=== PATIENT | female | born 1945 | race Caucasian/White ===

== ENCOUNTER → 2016-06-01 | Outpatient (REF) | payer MEDICARE ==
[~2016-06-01] MED LIST: VICO5TAB16 PO
== END ==
LOC: M LAB REF 07:47
PROVIDERS: ATTEND Internal Medicine
DX: E83.52 Hypercalcemia (principal)

== ENCOUNTER → 2016-06-17 | Outpatient (CLI) | payer MEDICARE ==
[~2016-06-17] VITALS: Ht 160 cm; Wt 102.1 kg
[~2016-06-17] MED LIST changes: +ALLE180T33 PO; +ASPI81TA85 PO; +ATOR1TAB19 PO; +CALC600T10 PO; +CARV12.5 PO; +CENTTAB47 PO; +ENAL20TA PO; +GLIP5TAB15 PO; +INVO100T PO; +LASI80TA PO; +LIDOCAINE 2% INJ 100 MG/5 ML SDV (FOR ANES.) As Ordered ONE; +MAGN500C PO; +METF500T PO; +NS 1,000 ML IV SCH; +POTA10CA PO; +PROPOFOL 200 MG/20 ML VIAL As Ordered ONE; +VICT18IN SC; +VITA-112 PO
--- NOTE | 2016-06-17 08:58 | ROOR ---
Patient Name: Paul De La Paz Procedure Date: 06/17/2016 8:16 AM Date of : 1945 Age: 71 Room: [facility] Gender: Female Note Status: Finalized Procedure: Upper GI endoscopy + Biopsies Indications: Heartburn, Exclusion of Fierro's esophagus Providers: Travis Ann MD Referring MD: Nolvia HAYDEN MD Requesting Provider: Medicines: Monitored Anesthesia Care Complications: No immediate complications. Procedure: Pre-Anesthesia Assessment: - The heart rate, respiratory rate, oxygen saturations, blood pressure, adequacy of pulmonary ventilation, and response to care were monitored throughout the procedure. The Endoscope was introduced through the mouth, and advanced to the second part of duodenum. The upper GI endoscopy was accomplished without difficulty. The patient tolerated the procedure well. Findings: The Z-line was irregular and was found 40 cm from the incisors. Non-severe esophagitis with no bleeding was found 40 cm from the incisors. Biopsies were taken with a cold forceps for histology. Localized mild inflammation characterized by congestion (edema) and erythema was found in the gastric antrum. Biopsies were taken with a cold forceps for Helicobacter pylori testing. The exam was otherwise without abnormality. Impression: - Z-line irregular, 40 cm from the incisors. - Non-severe reflux esophagitis. Rule out Fierro's esophagus. Biopsied. - Chronic gastritis. Biopsied. - The examination was otherwise normal. Recommendation: - Patient has a contact number available for emergencies. The signs and symptoms of potential delayed complications were discussed with the patient. Return to normal activities tomorrow. Written discharge instructions were provided to the patient. - High fiber diet. - Discharge patient to home. - Continue present medications. - Await pathology results. - Telephone GI clinic for pathology results in 1 week. - Check Portal Online for Path Results.([email or web address]) - Return to referring physician. - The findings and recommendations were discussed with the patient's family. Travis Ann MD Travis Ann MD 06/17/2016 8:58:27 AM This report has been signed electronically. Number of Addenda: 0 Note Initiated On: 06/17/2016 8:16 AM Estimated Blood Loss: Estimated blood loss: none.
--- NOTE | 2016-06-17 09:13 | ROOR ---
Patient Name: Paul De La Paz Procedure Date: 06/17/2016 8:18 AM Date of : 1945 Age: 71 Room: [facility] Gender: Female Note Status: Finalized Procedure: Colonoscopy to Cecum + Biopsy Polypectomy Indications: Screening for colorectal malignant neoplasm, Last colonoscopy 10 years ago Providers: Travis Ann MD Referring MD: Nolvia HAYDEN MD Requesting Provider: Medicines: Monitored Anesthesia Care Complications: No immediate complications. Procedure: Pre-Anesthesia Assessment: - The heart rate, respiratory rate, oxygen saturations, blood pressure, adequacy of pulmonary ventilation, and response to care were monitored throughout the procedure. The Colonoscope was introduced through the anus and advanced to the cecum, identified by appendiceal orifice and ileocecal valve. The colonoscopy was performed without difficulty. The patient tolerated the procedure well. The quality of the bowel preparation was good. Findings: The perianal and digital rectal examinations were normal. Multiple small and large-mouthed diverticula were found in the recto-sigmoid colon, sigmoid colon and descending colon. A diminutive polyp was found at 30 cm proximal to the anus. The polyp was sessile. The polyp was removed with a cold biopsy forceps. Resection and retrieval were complete. The exam was otherwise without abnormality on direct and retroflexion views. Impression: - Diverticulosis in the recto-sigmoid colon, in the sigmoid colon and in the descending colon. - One diminutive polyp at 30 cm proximal to the anus, removed with a cold biopsy forceps. Resected and retrieved. - The examination was otherwise normal on direct and retroflexion views. - The exam was otherwise normal to the cecum. Recommendation: - Patient has a contact number available for emergencies. The signs and symptoms of potential delayed complications were discussed with the patient. Return to normal activities tomorrow. Written discharge instructions were provided to the patient. - High fiber diet. - Discharge patient to home. - Continue present medications. - Await pathology results. - Telephone GI clinic for pathology results in 1 week. - Check Portal Online for Path Results.([email or web address]) - Repeat colonoscopy in 10 years for surveillance based on pathology results. - The findings and recommendations were discussed with the patient's family. Travis Ann MD Travis Ann MD 06/17/2016 9:13:27 AM This report has been signed electronically. Number of Addenda: 0 Note Initiated On: 06/17/2016 8:18 AM Estimated Blood Loss: Estimated blood loss: none.
[2016-06-17 09:45] VITALS: BP 162/83
== END | disposition home or self-care (01) ==
LOC: M OPP 07:34
PROVIDERS: ATTEND Internal Medicine Gastroenterology
DX: Z12.11 Encounter for screening for malignant neoplasm of colon (principal); D12.5 Benign neoplasm of sigmoid colon; K57.30 Diverticulosis of large intestine without perforation or abscess without bleeding; R12 Heartburn; K22.8 Other specified diseases of esophagus; K29.50 Unspecified chronic gastritis without bleeding; K21.0 Gastro-esophageal reflux disease with esophagitis; I10 Essential (primary) hypertension; E78.5 Hyperlipidemia, unspecified; R60.0 Localized edema; E11.9 Type 2 diabetes mellitus without complications; M19.90 Unspecified osteoarthritis, unspecified site; Z78.0 Asymptomatic menopausal state; Z85.528 Personal history of other malignant neoplasm of kidney; Z80.3 Family history of malignant neoplasm of breast; Z87.891 Personal history of nicotine dependence; Z88.2 Allergy status to sulfonamides; Z88.8 Allergy status to other drugs, medicaments and biological substances; Z79.82 Long term (current) use of aspirin; Z79.84 Long term (current) use of oral hypoglycemic drugs; Z79.899 Other long term (current) drug therapy

== ENCOUNTER 2017-07-23 19:21 | Emergency (ER) | payer MEDICARE ==
[2017-07-23] MEDS ORDERED: IBUPROFEN 600 MG TAB PO (20:00)
[2017-07-23 20:10] LABS: BASO % 0.3 % (0.0-1.0); EOS # 0.2 10^3/uL (0.0-0.50); EOS % 1.8 % (0.0-3.0); HEMATOCRIT 42.3 % (36.0-47.0); HEMOGLOBIN 13.5 g/dl (12.0-15.5); IMMATURE GRANULOCYTE % 0.3 % (0-3.0); LYMPH # 2.2 10^3/uL (1.5-4.5); LYMPH % 18.6 % (24.0-44.0); MEAN CORPUSCULAR HGB CONC 31.9 g/dl (32.0-36.5); MEAN CORPUSCULAR VOLUME 90.8 fl (80.0-96.0); MONO # 1.5 10^3/uL (0.0-0.8); MONO % 12.9 % (0.0-5.0); NEUTROPHILS # 7.8 10^3/uL (1.8-7.7); NEUTROPHILS % 66.1 % (36.0-66.0); PLATELET COUNT, AUTOMATED 247 10^3/uL (150-450); RED BLOOD COUNT 4.66 10^6/uL (4.00-5.40); RED CELL DISTRIBUTION WIDTH 12.9 % (11.5-14.5); WHITE BLOOD COUNT 11.7 10^3/uL (4.0-10.0)
[2017-07-23] MEDS ORDERED: IBUPROFEN 400 MG TAB As Ordered (20:19)
[2017-07-23] MEDS: IBUPROFEN 400 MG TAB PO (20:21)
[2017-07-23 20:23] LABS: PROTHROMBIN TIME 12.2 SECONDS (12.4-14.5)
[2017-07-23 20:24] LABS: PARTIAL THROMBOPLASTIN TIME 33.7 SECONDS (26.8-37.9)
[2017-07-23 20:26] LABS: D-DIMER QUANT 843.5 ng/ml (<500)
[2017-07-23 20:33] LABS: ALBUMIN 3.3 GM/DL (3.2-5.2); ALBUMIN/GLOBULIN RATIO 0.73 (1.00-1.93); ALKALINE PHOSPHATASE 47 U/L (45-117); ALT/SGPT 49 U/L (12-78); ANION GAP 6 MEQ/L (8-16); AST/SGOT 14 U/L (7-37); BILIRUBIN,DIRECT 0.2 MG/DL (0.0-0.2); BILIRUBIN,TOTAL 0.5 MG/DL (0.2-1.0); BLOOD UREA NITROGEN 13 MG/DL (7-18); CARBON DIOXIDE LEVEL 32 MEQ/L (21-32); CHLORIDE LEVEL 98 MEQ/L (98-107); CK-MB VALUE MASS < 1.0 NG/ML (<3.6); CPK CREATINE PHOSPHOKINASE 104 U/L (26-192); CREATININE FOR GFR 0.86 MG/DL (0.55-1.30); GLOMERULAR FILTRATION RATE > 60.0 (>39); GLUCOSE, FASTING 193 MG/DL (70-100); MB/CK RELATIVE INDEX 0.96 (< OR =4); POTASSIUM SERUM 3.5 MEQ/L (3.5-5.1); SODIUM LEVEL 136 MEQ/L (136-145); TOTAL PROTEIN 7.8 GM/DL (6.4-8.2); TROPONIN I < 0.02 NG/ML (< 0.10)
[2017-07-23] MEDS ORDERED: ISOVUE-370 76% 100ML VIAL (Q9967) As Ordered (20:57)
[2017-07-23] MEDS: MOXIFLOXACIN 400 MG TAB PO (22:38)
[2017-07-23] MEDS: OXYCODONE/APAP 5MG/325MG(BULK FOR ED) 1 TABLET PO (22:38)
== END 2017-07-23 22:45 | disposition home or self-care (01) ==
LOC: M ED 19:21
DX: H66.92 Otitis media, unspecified, left ear (principal); J20.9 Acute bronchitis, unspecified; M54.9 Dorsalgia, unspecified; E27.9 Disorder of adrenal gland, unspecified; E11.9 Type 2 diabetes mellitus without complications; I10 Essential (primary) hypertension; Z87.891 Personal history of nicotine dependence; Z88.2 Allergy status to sulfonamides; Z88.8 Allergy status to other drugs, medicaments and biological substances; Z79.899 Other long term (current) drug therapy; Z79.84 Long term (current) use of oral hypoglycemic drugs; Z79.82 Long term (current) use of aspirin
CPT/HCPCS: Q9967

== ENCOUNTER → 2017-09-27 | Outpatient (REF) | payer MEDICARE ==
[2017-09-27 13:47] LABS: CORTISOL AM 26.1 UG/DL (4.3-22.4)
[2017-09-30 08:06] LABS: DEHYDROEPIANDROSTERONE SULFATE 27.5 ug/dL (20.4-186.6)
[2017-10-01 10:14] LABS: ALDOSTERONE 11.3 ng/dL (0.0-30.0)
[2017-10-01 10:14] LABS: DEHYDROEPIANDROSTERONE UNCONJ 26 ng/dL (31-701); METANEPHRINE PLASMA 42 pg/mL (0-62); NORMETANEPHRINE PLASMA 90 pg/mL (0-145); RENIN LEVEL 33.917 ng/mL/hr (0.167-5.380)
== END ==
LOC: M LAB REF 13:10
DX: I10 Essential (primary) hypertension (principal); D44.12 Neoplasm of uncertain behavior of left adrenal gland; D35.00 Benign neoplasm of unspecified adrenal gland
CPT/HCPCS: 84244

== ENCOUNTER → 2017-10-18 | Outpatient (REF) | payer MEDICARE ==
[2017-10-18 14:37] LABS: CORTISOL AM 2.3 UG/DL (4.3-22.4)
== END ==
LOC: M LAB REF 13:46
DX: D44.2 Neoplasm of uncertain behavior of parathyroid gland (principal); D35.00 Benign neoplasm of unspecified adrenal gland
CPT/HCPCS: 82533

== ENCOUNTER → 2018-01-04 | Outpatient (REF) | payer MEDICARE ==
[2018-01-05 12:56] LABS: CORTISOL AM 17.5 UG/DL (4.3-22.4)
== END ==
LOC: M LAB REF 13:00
DX: D44.12 Neoplasm of uncertain behavior of left adrenal gland (principal)
CPT/HCPCS: 82533

== ENCOUNTER → 2018-01-18 | Outpatient (CLI) | payer MEDICARE ==
[~2018-01-18] MED LIST changes: -ALLE180T33 PO; -ASPI81TA85 PO; -ATOR1TAB19 PO; -CALC600T10 PO; -CARV12.5 PO; -CENTTAB47 PO; -ENAL20TA PO; -GLIP5TAB15 PO; -INVO100T PO; +ISOVUE-370 76% 100ML VIAL (Q9967) As Ordered; -LASI80TA PO; -LIDOCAINE 2% INJ 100 MG/5 ML SDV (FOR ANES.) As Ordered ONE; -MAGN500C PO; -METF500T PO; -NS 1,000 ML IV SCH; -POTA10CA PO; -PROPOFOL 200 MG/20 ML VIAL As Ordered ONE; -VICO5TAB16 PO; -VICT18IN SC; -VITA-112 PO
== END ==
LOC: M RAD 15:05
DX: D35.02 Benign neoplasm of left adrenal gland (principal); K44.9 Diaphragmatic hernia without obstruction or gangrene
CPT/HCPCS: Q9967

== ENCOUNTER 2018-03-01 14:21 | Outpatient (CLI) | payer MEDICARE ==
[~2018-03-01] VITALS: Ht 160 cm; Wt 99.8 kg
[~2018-03-01 14:21] MED LIST changes: +ALLE180T33 PO; +ASPI81TA85 PO; +ATOR1TAB19 PO; +AVEL1TAB3 PO; +CALC600T31 PO; +CARV12.5 PO; +CENTTAB47 PO; +ENAL20TA PO; +GLIP5TAB20 PO; +INVO100T PO; -ISOVUE-370 76% 100ML VIAL (Q9967) As Ordered; +KLOR10TA76 PO; +LASI80TA3 PO; +MAGN500C PO; +METF500T13 PO; +VICO5TAB16 PO; +VICT18IN SC; +VITA-112 PO
[2018-03-01 14:25] VITALS: BP 139/65
[2018-03-01] MEDS ORDERED: ZOLEDRONIC ACID 5 MG in APPROPRIATE DILUENT 1 EA IV ONE (14:45)
[2018-03-01] MEDS ORDERED: [UNRECOGNIZED DRUG - CODE] PO (15:30)
[2018-03-01] MEDS ORDERED: GABA-1171 PO (15:30)
[2018-03-01 15:45] VITALS: BP 126/60
== END 2018-03-01 15:50 | disposition home or self-care (01) ==
LOC: M INFU 14:21
PROVIDERS: ATTEND Internal Medicine
DX: M81.0 Age-related osteoporosis without current pathological fracture (principal)
CPT/HCPCS: 96365; J3489

== ENCOUNTER → 2018-07-06 | Outpatient (REF) | payer MEDICARE ==
[~2018-07-06] MED LIST changes: +GABA-1171 PO; -VICO5TAB16 PO; +VICO5TAB17 PO; +VITA500075 PO
== END ==
LOC: M LAB REF 12:53
PROVIDERS: ATTEND Internal Medicine
DX: E83.52 Hypercalcemia (principal)

== ENCOUNTER → 2018-10-26 | Outpatient (CLI) | payer MEDICARE ==
--- NOTE | 2018-10-26 09:41 | REP ---
Clinical: Malignant renal neoplasm. Comparison: 07/23/2017 . Technique: PA and lateral. Findings: The mediastinum and cardiac silhouette are normal. The lung granados are clear and without acute consolidation, effusion, or pneumothorax. The skeletal structures are intact and normal. Prior right shoulder repair. Impression: 1. No acute cardiopulmonary process. Electronically Signed by Osorio Joe MD 10/26/2018 09:32 A
== END ==
LOC: M RAD 09:08
PROVIDERS: ATTEND Urology
DX: C64.2 Malignant neoplasm of left kidney, except renal pelvis (principal)

== ENCOUNTER 2019-03-02 07:58 | Outpatient (CLI) | payer MEDICARE ==
[~2019-03-02] VITALS: Ht 160 cm; Wt 99.0 kg
[2019-03-02 08:00] VITALS: BP 151/75
[2019-03-02] MEDS ORDERED: ZOLEDRONIC ACID 5 MG OVER 15 MINUTES IV ONE ×2 (09:00)
[2019-03-02 09:20] VITALS: BP 120/88
== END 2019-03-02 09:20 | disposition home or self-care (01) ==
LOC: M INFU 07:58
PROVIDERS: ATTEND Internal Medicine
DX: M81.8 Other osteoporosis without current pathological fracture (principal); Z88.2 Allergy status to sulfonamides
CPT/HCPCS: 96365; J3489

== ENCOUNTER → 2019-05-23 | Outpatient (REF) | payer MEDICARE | LOC: M LAB REF 12:20 | PROVIDERS: ATTEND Internal Medicine | DX: Z85.528 Personal history of other malignant neoplasm of kidney (principal) ==

== ENCOUNTER → 2019-10-18 | Outpatient (CLI) | payer MEDICARE ==
[~2019-10-18] MED LIST changes: -ASPI81TA85 PO; +ASPI81TA86 PO; -ENAL20TA PO; +ENAL20TA11 PO
--- NOTE | 2019-10-26 11:17 | REP ---
CHEST X-RAY: 2-VIEWS HISTORY: C64.2. History of hypertension. Malignant neoplasm of the left kidney. COMPARISON: 10/26/2018. FINDINGS: Screw plate fixation device persists along the lateral cortex of the proximal humerus on the right. 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 There are degenerative changes in the thoracic spine. No acute bony abnormality is seen. The lungs are well-inflated and clear. The pleural angles are sharp. Heart size is normal. Pulmonary vasculature is not increased. IMPRESSION: No active cardiopulmonary disease. MTDD
== END ==
LOC: M RAD 14:54
PROVIDERS: ATTEND Urology
DX: C64.2 Malignant neoplasm of left kidney, except renal pelvis (principal); M19.012 Primary osteoarthritis, left shoulder; M51.34 Other intervertebral disc degeneration, thoracic region

== ENCOUNTER 2020-03-04 09:54 | Outpatient (CLI) | payer MEDICARE ==
[~2020-03-04] VITALS: Ht 160 cm; Wt 95.0 kg
[2020-03-04] MEDS ORDERED: ZOLEDRONIC ACID 5 MG in IV 1 EA IV ONE (10:00)
[2020-03-04 10:33] VITALS: BP 127/67
[2020-03-04] MEDS ORDERED: JARD1TAB3 PO (10:45)
[2020-03-04 10:52] VITALS: BP 127/59
== END 2020-03-04 11:00 | disposition home or self-care (01) ==
LOC: M INFU 09:54
PROVIDERS: ATTEND Internal Medicine
DX: M81.0 Age-related osteoporosis without current pathological fracture (principal); Z88.2 Allergy status to sulfonamides
CPT/HCPCS: 96365; J3489

== ENCOUNTER → 2020-10-15 | Outpatient (CLI) | payer MEDICARE ==
[~2020-10-15] MED LIST changes: +JARD1TAB3 PO
--- NOTE | 2020-10-15 08:26 | REP ---
INDICATION: F/U RENAL CELL CA- US FIRST COMPARISON: 10/18/2019 TECHNIQUE: PA and lateral. FINDINGS: The mediastinum and cardiac silhouette are normal. The lung granados are clear and without acute consolidation, effusion, or pneumothorax. The skeletal structures are intact and normal. IMPRESSION: No acute cardiopulmonary process. <Electronically signed by Osorio Joe > 10/15/20 [id number]
--- NOTE | 2020-10-15 08:38 | REP ---
INDICATION: F/U RENAL CELL CA COMPARISON: 02/13/2019 TECHNIQUE: Real time case scale ultrasound examination using curved array transducer. FINDINGS: Bilateral kidneys are normal in contour, size, echogenicity, and reniform shape. No hydronephrosis, nephrolithiasis, cystic or renal mass lesion identified. Right kidney measures 11.3 x 4.9 x 6.2 cm. Left kidney measures 10.4 x 4.3 x 5.1 cm. Bladder is under distended and grossly unremarkable. IMPRESSION: 1. Essentially normal renal ultrasound. <Electronically signed by Osorio Joe > 10/15/20 [id number]
== END ==
LOC: M RAD 07:30
PROVIDERS: ATTEND Internal Medicine
DX: C64.9 Malignant neoplasm of unspecified kidney, except renal pelvis (principal)

== ENCOUNTER → 2020-11-25 | Outpatient (CLI) | payer MEDICARE ==
[~2020-11-25] MED LIST changes: -KLOR10TA76 PO; +POTA-136 PO
== END ==
LOC: M LABSMTC 09:01
PROVIDERS: ATTEND Pediatrics
DX: Z20.822 Contact with and (suspected) exposure to COVID-19 (principal)
CPT/HCPCS: C9803; U0002

== ENCOUNTER → 2021-01-21 | Outpatient (REF) | payer MEDICARE ==
[2021-01-29 18:08] LABS: METANEPHRINE PLASMA 33.9 pg/mL (0.0-88.0); NORMETANEPHRINE PLASMA 69.7 pg/mL (0.0-285.2)
== END ==
LOC: M LAB REF 16:52
PROVIDERS: ATTEND Internal Medicine
DX: Z85.528 Personal history of other malignant neoplasm of kidney (principal)

== ENCOUNTER → 2021-06-06 | Outpatient (CLI) | payer MEDICARE | LOC: M LABSMTC 10:17 | PROVIDERS: ATTEND Pediatrics | DX: Z20.822 Contact with and (suspected) exposure to COVID-19 (principal) | CPT/HCPCS: 87426; C9803 ==

== ENCOUNTER → 2021-11-07 | Outpatient (REF) | payer MEDICARE | LOC: M LAB REF 12:15 | PROVIDERS: ATTEND Internal Medicine | DX: E83.52 Hypercalcemia (principal) ==

== ENCOUNTER → 2021-11-09 | Outpatient (CLI) | payer MEDICARE | LOC: M LABSMTC 11:01 | PROVIDERS: ATTEND Family Medicine | DX: Z11.52 Encounter for screening for COVID-19 (principal); Z20.822 Contact with and (suspected) exposure to COVID-19 | CPT/HCPCS: 87635; C9803 ==

== ENCOUNTER → 2021-12-05 | Outpatient (CLI) | payer MEDICARE | LOC: M RAD 11:08 | PROVIDERS: ATTEND Internal Medicine | DX: C64.9 Malignant neoplasm of unspecified kidney, except renal pelvis (principal) ==

== ENCOUNTER → 2022-03-12 | Outpatient (CLI) | payer MEDICARE | LOC: M WHC 10:36 | PROVIDERS: ATTEND Internal Medicine | DX: Z13.820 Encounter for screening for osteoporosis (principal); M85.851 Other specified disorders of bone density and structure, right thigh; M85.852 Other specified disorders of bone density and structure, left thigh ==

== ENCOUNTER → 2022-12-29 | Outpatient (REF) | payer MEDICARE ==
[~2022-12-29] MED LIST changes: +ENAL1TAB52 PO; -ENAL20TA11 PO
== END ==
LOC: M LAB REF 12:34
PROVIDERS: ATTEND Internal Medicine
DX: E83.52 Hypercalcemia (principal)

== ENCOUNTER → 2023-01-06 | Outpatient (REF) | payer MEDICARE ==
[2023-01-06 12:44] LABS: CALCIUM, 24 HOUR URINE 353.8 MG/24HR (42-353); CALCIUM, URINE 12.2 MG/DL
[2023-01-06 12:46] LABS: CREATININE 24 HOUR, URINE 951.2 MG/24HR (600-1800); CREATININE, URINE 32.8 MG/DL
== END ==
LOC: M LAB REF 10:29
PROVIDERS: ATTEND Internal Medicine
DX: E83.52 Hypercalcemia (principal)

== ENCOUNTER → 2023-02-04 | Outpatient (CLI) | payer MEDICARE | LOC: M RAD 07:07 | PROVIDERS: ATTEND Internal Medicine | DX: Z85.528 Personal history of other malignant neoplasm of kidney (principal) ==

== ENCOUNTER → 2023-03-29 | Outpatient (CLI) | payer MEDICARE ==
[2023-03-29 11:39] LABS: CREATININE, SERUM 0.7 MG/DL (0.55-1.02)
[2023-03-29 11:40] LABS: ALBUMIN 3.8 G/DL (3.2-5.2); BLOOD UREA NITROGEN 14 MG/DL (9-23); CALCIUM LEVEL 10.4 MG/DL (8.3-10.6); CARBON DIOXIDE LEVEL 29 MMOL/L (20-31); CHLORIDE LEVEL 101 MMOL/L (98-107); CREATININE FOR GFR 0.76 MG/DL (0.55-1.30); GLOMERULAR FILTRATION RATE > 60.0 (>39); GLUCOSE, FASTING 179 MG/DL (74-106); MAGNESIUM LEVEL 2.2 MG/DL (1.8-2.4); PHOSPHORUS LEVEL 4.2 MG/DL (2.4-5.1); POTASSIUM SERUM 4.2 MMOL/L (3.5-5.1); SODIUM LEVEL 135 MMOL/L (136-145)
[2023-03-29 11:42] LABS: FREE T4 1.49 NG/DL (0.89-1.76); THYROID STIMULATING HORMONE 1.961 uIU/ML (0.55-4.78); TOTAL 25(OH) VITAMIN D 35.8 NG/ML (20.0-100.0)
[2023-03-29 11:44] LABS: PTH INTACT 133.7 PG/ML (18.5-88.0)
[2023-03-29 12:10] LABS: CREATININE, URINE 35.26 MG/DL
[2023-03-29 12:11] LABS: CALCIUM, 24 HOUR URINE 358.6 MG/24HR (42-353); CALCIUM, URINE 16.3 MG/DL
== END ==
LOC: M LAB 10:15
PROVIDERS: ATTEND Internal Medicine Endocrinology, Diabetes & Metabolism
DX: E21.3 Hyperparathyroidism, unspecified (principal); Z79.899 Other long term (current) drug therapy

== ENCOUNTER 2023-08-06 12:44 | Emergency (ER) | payer MEDICARE ==
[~2023-08-06] VITALS: Ht 157.5 cm; Wt 72.9 kg
[2023-08-06] MEDS ORDERED: OXYC1TAB23 PO (14:07)
[2023-08-06] MEDS: PERCOCET 5MG/325MG TAB PO ONE (14:20)
[2023-08-06 14:24] VITALS: BP 139/64; TEMP 97.4; O2SAT 97
[2023-08-09] MEDS ORDERED: CHOL125C6 PO (14:40)
[2023-08-09] MEDS ORDERED: GNP250TA9 PO (14:40)
[2023-08-09] MEDS ORDERED: SEMA1PEN2 SQ (14:40)
== END 2023-08-06 14:28 | disposition home or self-care (01) ==
LOC: M ED 12:44
DX: S42.352A Displaced comminuted fracture of shaft of humerus, left arm, initial encounter for closed fracture (principal); M25.819 Other specified joint disorders, unspecified shoulder; W19.XXXA Unspecified fall, initial encounter; E78.5 Hyperlipidemia, unspecified; I10 Essential (primary) hypertension; E11.9 Type 2 diabetes mellitus without complications; F10.10 Alcohol abuse, uncomplicated; Y92.009 Unspecified place in unspecified non-institutional (private) residence as the place of occurrence of the external cause; Y93.89 Activity, other specified; Y99.9 Unspecified external cause status; Z87.891 Personal history of nicotine dependence; Z88.2 Allergy status to sulfonamides; Z88.8 Allergy status to other drugs, medicaments and biological substances; Z79.82 Long term (current) use of aspirin; Z79.02 Long term (current) use of antithrombotics/antiplatelets; Z79.4 Long term (current) use of insulin; Z79.899 Other long term (current) drug therapy; M85.812 Other specified disorders of bone density and structure, left shoulder

== ENCOUNTER 2023-08-10 13:25 | Observation (INO) | payer MEDICARE ==
[~2023-08-10] VITALS: Ht 160 cm; Wt 75.1 kg
[~2023-08-10 13:25] MED LIST changes: +CHOL125C6 PO; +GNP250TA9 PO; +OXYC1TAB23 PO; +SEMA1PEN2 SC
[2023-08-10] MEDS ORDERED: ACET-897 PO (13:53)
[2023-08-10] MEDS ORDERED: MIDAZOLAM INJ 2MG/2ML VIAL IV PRN (14:00)
[2023-08-10] MEDS: ROPIvacaine 0.5% 30ML VIAL PN ONE (14:00)
[2023-08-10] MEDS: EPINEPHrine INJ 1 MG/ML 1ML AMP PN ONE (14:00)
[2023-08-10] MEDS: dexAMETHasone 10MG/1ML VIAL PRES.FREE PN ONE (14:00)
[2023-08-10] MEDS: LIDOCAINE 1% SDV 5ML VIAL PN ONE (14:00)
[2023-08-10] MEDS ORDERED: fentaNYL 100 MCG/2 ML INJECTION IV PRN ×2 (14:00→16:45)
[2023-08-10] MEDS ORDERED: DEXTROSE 50% 50ML SYRINGE IV PRN (14:15)
[2023-08-10] MEDS ORDERED: GLUCAGON INJ 1MG VIAL SC PRN (14:15)
[2023-08-10] MEDS ORDERED: GLUCOSE 4 GM CHEW PO PRN (14:15)
[2023-08-10] MEDS: INSULIN LISPRO (NovoLOG) PER UNIT SC PRN (14:21)
[2023-08-10] MEDS: LR 1,000 ML IV SCH (14:21)
[2023-08-10] MEDS ORDERED: ceFAZolin 2 GM/D5W 50 ML IV BAG As Ordered ONE (14:48)
[2023-08-10] MEDS ORDERED: LIDOCAINE 2% 100MG/5ML SDV (FOR ANES.) As Ordered ONE (14:48)
[2023-08-10] MEDS ORDERED: propofoL 200 MG/20 ML VIAL As Ordered ONE (14:48)
[2023-08-10] MEDS ORDERED: fentaNYL 100 MCG/2 ML INJECTION As Ordered ONE (14:49)
[2023-08-10] MEDS ORDERED: PHENYLephrine 500MCG 5ML (100MCG/ML) SYRINGE As Ordered ONE (15:19)
[2023-08-10] MEDS: ceFAZolin SOD 2 GM in IV 1 EA IV ONE (15:20)
[2023-08-10] MEDS ORDERED: ePHEDrine SULFATE 25 MG/5 ML(5MG/ML) SYRINGE As Ordered ONE (15:40)
[2023-08-10] MEDS ORDERED: ACETAMINOPHEN 1000MG 100ML IV BAG As Ordered ONE (16:33)
[2023-08-10] MEDS ORDERED: MORPHINE 2 MG/ML 1ML VIAL IV PRN (16:45)
[2023-08-10] MEDS ORDERED: ONDANSETRON 4MG 2ML VIAL IV PRN ×2 (16:45→16:55)
[2023-08-10] MEDS ORDERED: oxyCODONE 5MG TAB PO PRN ×3 (16:45→16:55)
[2023-08-10 17:40] VITALS: BP 151/67; TEMP 97.7; O2SAT 96
[2023-08-10 18:10] VITALS: BP 152/68; TEMP 97.7; O2SAT 96
[2023-08-10 19:20] VITALS: BP 147/70; TEMP 97.7; O2SAT 94
[2023-08-10 20:20] VITALS: BP 144/70; TEMP 97.9; O2SAT 93
[2023-08-10] MEDS ORDERED: OXYC1TAB23 PO (20:26)
[2023-08-10] MEDS ORDERED: METF750T36 PO (20:28)
[2023-08-10] MEDS ORDERED: HOME MED LIST COMPLETE! XX SCH (20:30)
[2023-08-10] MEDS: SENOKOT S TAB PO SCH (20:39)
[2023-08-10] MEDS: DOCUSATE SODIUM 100MG CAPSULE PO SCH (20:39)
[2023-08-10 21:20] VITALS: BP 139/67; TEMP 97.9; O2SAT 93
[2023-08-10] MEDS: CARVedilol 12.5 MG TAB PO SCH (21:47)
[2023-08-10] MEDS: ENALAPRIL MALEATE 10 MG TAB PO SCH (21:47)
[2023-08-10] MEDS: ATORVASTATIN 10 MG TAB PO SCH (21:47)
[2023-08-10 22:20] VITALS: BP 118/51; TEMP 97.9; O2SAT 91
[2023-08-10] MEDS: ceFAZolin SOD 2 GM in IV 1 EA IV SCH (22:30)
[2023-08-11 01:15] VITALS: BP 144/64; TEMP 97.2; O2SAT 94
[2023-08-11 04:00] VITALS: BP 136/62; TEMP 97.7; O2SAT 95
[2023-08-11] MEDS: ACETAMINOPHEN TAB 650MG DOSE (2X325MG) PO PRN (06:07)
[2023-08-11 07:24] LABS: ALBUMIN 2.9 G/DL (3.2-5.2); ALKALINE PHOSPHATASE 25 U/L (46-116); ALT/SGPT 15 U/L (7.0-40); AST/SGOT 15 U/L (<34); BILIRUBIN,TOTAL 0.7 MG/DL (0.3-1.2); BLOOD UREA NITROGEN 23 MG/DL (9-23); CALCIUM LEVEL 10.5 MG/DL (8.3-10.6); CARBON DIOXIDE LEVEL 26 MMOL/L (20-31); CHLORIDE LEVEL 102 MMOL/L (98-107); CREATININE FOR GFR 0.61 MG/DL (0.55-1.30); GLOMERULAR FILTRATION RATE > 60.0 (>39); GLUCOSE, FASTING 202 MG/DL (74-106); POTASSIUM SERUM 4.1 MMOL/L (3.5-5.1); SODIUM LEVEL 135 MMOL/L (136-145); TOTAL PROTEIN 5.4 G/DL (5.7-8.2)
[2023-08-11] MEDS ORDERED: OXYC1TAB23 PO (07:58)
[2023-08-11 08:10] VITALS: BP 133/62; TEMP 97.9; O2SAT 96
[2023-08-11 08:33] VITALS: BP 133/61
[2023-08-11] MEDS: FUROSEMIDE 80 MG TAB PO SCH (08:36)
[2023-08-11 08:37] VITALS: BP 133/61
[2023-08-11] MEDS: FEXOFENADINE 60MG TAB PO SCH (08:37)
[2023-08-11] MEDS: ENOXAPARIN 40MG/0.4ML SYRINGE (J1650 PER 10MG) SC SCH (08:37)
== END 2023-08-11 10:15 | disposition home or self-care (01) ==
LOC: M SDC 13:25 → M MS5PR 13:26
PROVIDERS: ADMIT Orthopaedic Surgery; ATTEND Orthopaedic Surgery
DX: S42.202A Unspecified fracture of upper end of left humerus, initial encounter for closed fracture (principal); W19.XXXA Unspecified fall, initial encounter; Z88.2 Allergy status to sulfonamides; Z88.8 Allergy status to other drugs, medicaments and biological substances; I10 Essential (primary) hypertension; E78.5 Hyperlipidemia, unspecified; E11.9 Type 2 diabetes mellitus without complications; K21.9 Gastro-esophageal reflux disease without esophagitis; Z85.528 Personal history of other malignant neoplasm of kidney; Z79.84 Long term (current) use of oral hypoglycemic drugs; Z79.899 Other long term (current) drug therapy; Z87.891 Personal history of nicotine dependence
CPT/HCPCS: 23615; 36415; 76000; 80053; 93005; 96365; 96366; C1713; C1762; G0378; J0131; J0665; J0690; J1100; J1650; J1815; J2371; J3010

== ENCOUNTER → 2023-09-03 | Outpatient (CLI) | payer MEDICARE ==
[~2023-09-03] MED LIST changes: +ACET-897 PO; +METF750T36 PO
== END ==
LOC: M SOG 07:54
PROVIDERS: ATTEND Orthopaedic Surgery
DX: Z47.89 Encounter for other orthopedic aftercare (principal)

== ENCOUNTER → 2023-09-22 | Outpatient (REF) | payer MEDICARE ==
[2023-09-22 13:58] LABS: PHOSPHORUS LEVEL 4.5 MG/DL (2.4-5.1); PTH INTACT 117.1 PG/ML (18.5-88.0)
== END ==
LOC: M LAB REF 13:10
PROVIDERS: ATTEND Internal Medicine
DX: M85.80 Other specified disorders of bone density and structure, unspecified site (principal); N18.31 Chronic kidney disease, stage 3a; E21.0 Primary hyperparathyroidism

== ENCOUNTER → 2023-09-29 | Outpatient (CLI) | payer MEDICARE | LOC: M RAD 09:28 | PROVIDERS: ATTEND Orthopaedic Surgery | DX: Z47.89 Encounter for other orthopedic aftercare (principal) ==

== ENCOUNTER → 2023-11-17 | Outpatient (CLI) | payer MEDICARE | LOC: M SOG 07:20 | PROVIDERS: ATTEND Physician Assistant | DX: Z47.89 Encounter for other orthopedic aftercare (principal) ==

== ENCOUNTER → 2024-01-05 | Outpatient (CLI) | payer MEDICARE | LOC: M RAD 11:07 | PROVIDERS: ATTEND Internal Medicine Endocrinology, Diabetes & Metabolism | DX: E21.3 Hyperparathyroidism, unspecified (principal) ==

== ENCOUNTER → 2024-01-10 | Outpatient (CLI) | payer MEDICARE ==
[2024-01-10 11:44] LABS: IONIZED CALCIUM 5.1 MG/DL (4.5-5.3)
[2024-01-10 12:17] LABS: ALBUMIN 3.7 G/DL (3.2-5.2); BLOOD UREA NITROGEN 14 MG/DL (9-23); CALCIUM LEVEL 10.4 MG/DL (8.3-10.6); CARBON DIOXIDE LEVEL 29 MMOL/L (20-31); CHLORIDE LEVEL 102 MMOL/L (98-107); CREATININE FOR GFR 0.63 MG/DL (0.55-1.30); GLOMERULAR FILTRATION RATE > 60.0 (>39); GLUCOSE, FASTING 187 MG/DL (74-106); PHOSPHORUS LEVEL 3.2 MG/DL (2.4-5.1); POTASSIUM SERUM 4.2 MMOL/L (3.5-5.1); SODIUM LEVEL 139 MMOL/L (136-145)
[2024-01-10 12:18] LABS: PTH INTACT 132.3 PG/ML (18.5-88.0)
[2024-01-10 12:19] LABS: THYROID STIMULATING HORMONE 2.026 uIU/ML (0.55-4.78); TOTAL 25(OH) VITAMIN D 42.8 NG/ML (20.0-100.0)
[2024-01-10 12:29] LABS: CREATININE, SERUM 0.6 MG/DL (0.55-1.02)
[2024-01-10 12:51] LABS: ALKALINE PHOSPHATASE 30 U/L (35-104)
[2024-01-10 13:38] LABS: CALCIUM, URINE 20.8 MG/DL; CREATININE CLEARANCE, URINE 90.5 ML/MIN (75-115); CREATININE, URINE 39.08 MG/DL
== END ==
LOC: M LAB 10:39
PROVIDERS: ATTEND Internal Medicine Endocrinology, Diabetes & Metabolism
DX: E21.3 Hyperparathyroidism, unspecified (principal); Z79.899 Other long term (current) drug therapy

== ENCOUNTER → 2024-03-14 | Outpatient (CLI) | payer MEDICARE | LOC: M WHC 08:55 | PROVIDERS: ATTEND Internal Medicine Endocrinology, Diabetes & Metabolism | DX: E21.3 Hyperparathyroidism, unspecified (principal) ==

== ENCOUNTER → 2024-03-27 | Outpatient (CLI) | payer MEDICARE | LOC: M RAD 11:01 | PROVIDERS: ATTEND Internal Medicine Endocrinology, Diabetes & Metabolism | DX: E21.3 Hyperparathyroidism, unspecified (principal) ==

== ENCOUNTER → 2024-03-30 | Outpatient (CLI) | payer MEDICARE | LOC: M RAD 10:09 | PROVIDERS: ATTEND Internal Medicine Endocrinology, Diabetes & Metabolism | DX: E21.3 Hyperparathyroidism, unspecified (principal) | CPT/HCPCS: 78070; 78803; A9500 ==

== ENCOUNTER 2024-05-02 11:12 | Emergency (ER) | payer MEDICARE ==
[~2024-05-02] VITALS: Ht 160 cm; Wt 75.5 kg
[2024-05-02] MEDS: MORPHINE 2 MG/ML 1ML VIAL IM ONE (15:37)
[2024-05-02] MEDS ORDERED: PERC5TAB12 PO (17:04)
[2024-05-02 17:23] VITALS: BP 148/66; TEMP 98.2; O2SAT 98
== END 2024-05-02 17:27 | disposition home or self-care (01) ==
LOC: M ED 11:12
DX: S32.511A Fracture of superior rim of right pubis, initial encounter for closed fracture (principal); W00.0XXA Fall on same level due to ice and snow, initial encounter; M16.11 Unilateral primary osteoarthritis, right hip; K59.00 Constipation, unspecified; K21.9 Gastro-esophageal reflux disease without esophagitis; I10 Essential (primary) hypertension; E78.5 Hyperlipidemia, unspecified; E11.9 Type 2 diabetes mellitus without complications; Z88.2 Allergy status to sulfonamides; Z88.8 Allergy status to other drugs, medicaments and biological substances; Z79.02 Long term (current) use of antithrombotics/antiplatelets; Z79.4 Long term (current) use of insulin; Z79.1 Long term (current) use of non-steroidal anti-inflammatories (NSAID); Z79.899 Other long term (current) drug therapy; Y93.89 Activity, other specified; Y99.9 Unspecified external cause status

== ENCOUNTER → 2024-05-19 | Outpatient (CLI) | payer MEDICARE ==
[~2024-05-19] MED LIST changes: +GLIP-318 PO; -GLIP5TAB20 PO; +PERC5TAB12 PO
[2024-05-19 15:55] LABS: CREATININE FOR GFR 0.56 MG/DL (0.55-1.30); GLOMERULAR FILTRATION RATE > 60.0 (>39)
== END ==
LOC: M LAB 14:57
PROVIDERS: ATTEND Radiology Therapeutic Radiology
DX: Z01.812 Encounter for preprocedural laboratory examination (principal)

== ENCOUNTER → 2024-05-31 | Outpatient (CLI) | payer MEDICARE | LOC: M SOG 07:53 | PROVIDERS: ATTEND Physician Assistant | DX: S32.810A Multiple fractures of pelvis with stable disruption of pelvic ring, initial encounter for closed fracture (principal); W18.30XA Fall on same level, unspecified, initial encounter; Y92.009 Unspecified place in unspecified non-institutional (private) residence as the place of occurrence of the external cause ==

== ENCOUNTER → 2024-05-31 | Outpatient (CLI) | payer MEDICARE ==
[2024-05-31 16:46] LABS: CALCIUM LEVEL 10.8 MG/DL (8.3-10.6); CREATININE FOR GFR 0.67 MG/DL (0.55-1.30); POTASSIUM SERUM 4.3 MMOL/L (3.5-5.1)
== END ==
LOC: M LAB 15:44
PROVIDERS: ATTEND Internal Medicine
DX: Z01.818 Encounter for other preprocedural examination (principal)

== ENCOUNTER → 2024-06-14 | Outpatient (CLI) | payer MEDICARE | LOC: M RAD 13:48 | PROVIDERS: ATTEND Internal Medicine | DX: I65.23 Occlusion and stenosis of bilateral carotid arteries (principal) ==

== ENCOUNTER 2024-06-19 12:45 | Outpatient (RCR) | payer MEDICARE | END 2024-06-21 | LOC: M PT 12:45 | PROVIDERS: ATTEND Orthopaedic Surgery | DX: S32.810D Multiple fractures of pelvis with stable disruption of pelvic ring, subsequent encounter for fracture with routine healing (principal) ==

== ENCOUNTER → 2024-09-06 | Outpatient (CLI) | payer MEDICARE ==
[~2024-09-06] MED LIST changes: +IBUP200C90 PO; +LASI40TA9 PO; +SEMA2PEN SQ
== END ==
LOC: M SOG 09:05
PROVIDERS: ATTEND Orthopaedic Surgery
DX: M25.552 Pain in left hip (principal)

== ENCOUNTER 2024-09-24 10:39 | Emergency (ER) | payer MEDICARE ==
[~2024-09-24] VITALS: Ht 157.5 cm; Wt 73.6 kg
[2024-09-24] MEDS ORDERED: METH-1164 PO (12:55)
[2024-09-24 13:00] VITALS: BP 123/61; O2SAT 98
[2024-09-24 13:08] VITALS: TEMP 97.6
== END 2024-09-24 13:10 | disposition home or self-care (01) ==
LOC: M ED 10:39
DX: M25.552 Pain in left hip (principal); E11.9 Type 2 diabetes mellitus without complications; E03.9 Hypothyroidism, unspecified; G47.30 Sleep apnea, unspecified; M47.814 Spondylosis without myelopathy or radiculopathy, thoracic region; M47.816 Spondylosis without myelopathy or radiculopathy, lumbar region; Z88.2 Allergy status to sulfonamides; Z88.8 Allergy status to other drugs, medicaments and biological substances; Z79.02 Long term (current) use of antithrombotics/antiplatelets; Z79.4 Long term (current) use of insulin; Z79.1 Long term (current) use of non-steroidal anti-inflammatories (NSAID); Z79.899 Other long term (current) drug therapy

== ENCOUNTER → 2024-09-28 | Outpatient (CLI) | payer MEDICARE ==
[~2024-09-28] MED LIST changes: +METH-1164 PO
[2024-09-28 08:45] VITALS: TEMP 97.8
[2024-09-28 09:34] VITALS: BP 158/76; O2SAT 100
[2024-09-28] MEDS: LIDOCAINE 1% MDV 20 ML VIAL SC ONE (11:01)
[2024-09-28] MEDS: TRIAMCINOLONE ACETONIDE SUSP 40MG/ML 1ML VIAL IA SCH (11:03)
== END ==
LOC: M IRPRO 08:32
PROVIDERS: ATTEND Orthopaedic Surgery
DX: M70.62 Trochanteric bursitis, left hip (principal); M46.1 Sacroiliitis, not elsewhere classified
CPT/HCPCS: 27096; J0665; J3301

== ENCOUNTER → 2024-09-29 | Outpatient (CLI) | payer MEDICARE | LOC: M PLARAD 15:00 | PROVIDERS: ATTEND Internal Medicine | DX: M54.50 Low back pain, unspecified (principal); M47.816 Spondylosis without myelopathy or radiculopathy, lumbar region; M47.817 Spondylosis without myelopathy or radiculopathy, lumbosacral region; M43.16 Spondylolisthesis, lumbar region; S32.501D Unspecified fracture of right pubis, subsequent encounter for fracture with routine healing ==

== ENCOUNTER → 2024-10-02 | Outpatient (REF) | payer MEDICARE ==
[2024-10-02 19:15] LABS: PHOSPHORUS LEVEL 3.1 MG/DL (2.4-5.1)
[2024-10-02 19:30] LABS: PTH INTACT 159.6 PG/ML (18.5-88.0)
== END ==
LOC: M LAB REF 18:21
PROVIDERS: ATTEND Internal Medicine
DX: E21.0 Primary hyperparathyroidism (principal); I12.9 Hypertensive chronic kidney disease with stage 1 through stage 4 chronic kidney disease, or unspecified chronic kidney disease

== ENCOUNTER 2024-10-21 15:41 | Emergency (ER) | payer MEDICARE ==
[~2024-10-21] VITALS: Ht 160 cm; Wt 81.0 kg
[2024-10-21 17:06] LABS: BASO # 0.1 10^3/uL (0.0-0.2); BASO % 0.7 % (0.0-1.0); EOS # 0.1 10^3/uL (0.0-0.5); EOS % 0.9 % (0.0-3.0); LYMPH # 1.1 10^3/uL (1.5-5.0); LYMPH % 14.8 % (24.0-44.0); MONO # 1.0 10^3/uL (0.0-0.8); MONO % 13.9 % (2.0-8.0); NEUTROPHILS # 5.2 10^3/uL (1.5-8.5); NEUTROPHILS % 68.9 % (36.0-66.0); PLATELET COUNT, AUTOMATED 109 10^3/uL (150-450)
[2024-10-21 17:39] LABS: ALT/SGPT 49 U/L (7.0-40); AST/SGOT 27 U/L (<34); CALCIUM LEVEL 8.6 MG/DL (8.3-10.6); CARBON DIOXIDE LEVEL 24 MMOL/L (20-31); CHLORIDE LEVEL 102 MMOL/L (98-107); CREATININE FOR GFR 0.64 MG/DL (0.55-1.30); GLOMERULAR FILTRATION RATE > 90.0 (>39); MAGNESIUM LEVEL 1.8 MG/DL (1.8-2.4); PHOSPHORUS LEVEL 3.2 MG/DL (2.4-5.1); POTASSIUM SERUM 3.6 MMOL/L (3.5-5.1); SODIUM LEVEL 140 MMOL/L (136-145)
[2024-10-21 17:40] LABS: FREE T4 3.76 NG/DL (0.89-1.76)
[2024-10-21] MEDS ORDERED: META-10 (17:52)
[2024-10-21] MEDS ORDERED: ACET-1592 PO (17:52)
[2024-10-21 18:00] VITALS: BP 160/67; TEMP 97.5; O2SAT 95
[2024-10-21] MEDS ORDERED: CALC250T PO (18:01)
== END 2024-10-21 18:20 | disposition home or self-care (01) ==
LOC: M ED 15:41
DX: R20.2 Paresthesia of skin (principal); E11.9 Type 2 diabetes mellitus without complications; I10 Essential (primary) hypertension; Z88.2 Allergy status to sulfonamides; Z88.8 Allergy status to other drugs, medicaments and biological substances; Z79.02 Long term (current) use of antithrombotics/antiplatelets; Z79.1 Long term (current) use of non-steroidal anti-inflammatories (NSAID); Z79.4 Long term (current) use of insulin; Z79.899 Other long term (current) drug therapy

== ENCOUNTER → 2024-11-01 | Outpatient (REF) | payer MEDICARE ==
[~2024-11-01] MED LIST changes: +ACET-1592 PO; +CALC250T PO; +META-10
[2024-11-01 19:30] LABS: PHOSPHORUS LEVEL 2.9 MG/DL (2.4-5.1); PTH INTACT 56.9 PG/ML (18.5-88.0)
== END ==
LOC: M LAB REF 18:13
PROVIDERS: ATTEND Internal Medicine
DX: N18.31 Chronic kidney disease, stage 3a (principal)

== ENCOUNTER → 2025-02-07 | Outpatient (REF) | payer MEDICARE | LOC: M LAB REF 12:12 | PROVIDERS: ATTEND Internal Medicine | DX: E21.0 Primary hyperparathyroidism (principal); E07.9 Disorder of thyroid, unspecified ==